=== PATIENT | male | born 2000 | race Two or more races ===

== ENCOUNTER → 2024-07-20 | Outpatient (CLI) | payer MEDICAID, SELFPAY ==
--- NOTE | 2024-07-20 09:45 | XR_ITS ---
Examination: Abdomen sonogram, complete Date and time of exam: July 20, 2024 0933 hours INDICATIONS: Abdominal distention beginning 2019. Technique: Multiple real-time grayscale transabdominal sonographic images of the abdomen have been obtained. Findings: Normal gallbladder Normal common bile duct 0.3 cm Pancreatic head 1.0 cm Aorta not enlarged Liver 16.2 cm smooth contour no focal liver lesions Normal hepatopedal portal venous flow Patent IVC Right kidney 11.7 x 6.5 x 5.6 cm renal cortex 1.6 cm Left kidney 10.6 x 4.7 x 4.1 cm cortex 1.6 cm No hydronephrosis or renal calculi Spleen 11.9 cm IMPRESSION: Normal gallbladder Mild hepatomegaly
== END | disposition home or self-care (01) ==
PROVIDERS: Referring Provider Nurse Practitioner Family; Visit Provider Nurse Practitioner Family
DX: R16.0 Hepatomegaly, not elsewhere classified (principal)
CPT/HCPCS: 76700

== ENCOUNTER → 2024-07-21 | Outpatient (CLI) | payer MEDICAID, SELFPAY ==
--- NOTE | 2024-07-21 11:00 | XR_ITS ---
Examination: Thyroid sonography complete TECHNIQUE: Grayscale sonographic images thyroid lobes with color flow analysis Exam date and time: July 21, 2024 1103 hours INDICATIONS: Family history thyroid cancer, mother, clinical diagnosis enlarged thyroid on clinical examination by provider this month. FINDINGS: Right thyroid 5.2 x 1.5 x 1.6 cm Left thyroid 4.6 x 1.7 x 1.4 cm No thyroid nodules IMPRESSION: Mild right thyromegaly Consider correlation with oral I-123 thyroid uptake and scan
== END | disposition home or self-care (01) ==
PROVIDERS: PCP Nurse Practitioner Family; Referring Provider Nurse Practitioner Family; Visit Provider Nurse Practitioner Family
DX: E01.0 Iodine-deficiency related diffuse (endemic) goiter (principal)
CPT/HCPCS: 76536

== ENCOUNTER 2024-09-08 09:15 | Outpatient (RCR) | payer MEDICAID, SELFPAY ==
--- NOTE | 2024-09-07 09:00 | XR_ITS ---
Examination: Nuclear medicine thyroid uptake and scan Exam date and time: September 07, 2024, 2024 0752 hrs. Indications: Neck pain and swelling shortness of breath months, ultrasound thyroid July 21, 2024 right thyromegaly Technique And Findings: Oral Administration 280 uCi I-123 6 hour uptake 49.5% normal range 6-24% 24 hour uptake 39.8% normal range 10-36% No discrete thyroid nodules on the AP oblique thyroid scans Impression: Elevated thyroid uptake values as above This patient is amenable to oral I-131 radiopharmaceutical treatment for hyperthyroidism as clinically warranted
== END 2024-09-13 23:59 | disposition home or self-care (01) ==
LOC: SNUC 09:15
PROVIDERS: PCP Nurse Practitioner Family; Referring Provider Nurse Practitioner Family; Visit Provider Nurse Practitioner Family
DX: E05.90 Thyrotoxicosis, unspecified without thyrotoxic crisis or storm (principal)
CPT/HCPCS: 78013; A9516